=== PATIENT | male | born 1945 | race Caucasian/White ===

== ENCOUNTER → 2018-11-08 16:18 | Outpatient (CLI) | payer MEDICARE, OTHER, SELFPAY ==
--- NOTE | 2018-11-08 | DI.MRI.S_ITS ---
PROCEDURE: MR KNEE LT WO CON INDICATIONS: PAIN IN LEFT KNEE TECHNIQUE: Noncontrast sagittal PD fast spin echo and T2 fast spin echo with fat saturation, sagittal 3-D FLASH with fat saturation; coronal T1 spin echo and PD fast spin echo with fat saturation, and axial PD fast spin echo with fat saturation through the knee. COMPARISON: [facility] [place], CR, XR KNEE ARTHRITIC SERIES LT, 08/29/2018, 15:15. FINDINGS: Image quality: Excellent. Menisci: Medial meniscal tear involving the posterior horn and body, with marked truncation of the free margin. There is also irregularity of the periphery of the body. Lateral meniscus appears grossly intact. Cruciate ligaments: Thickening of the anterior cruciate ligament although intact fibers are seen. There is also T2 hyperintensity. The PCL appears grossly intact. Medial structures: MCL mildly thickened. There is adjacent soft tissue edema. The posterior oblique ligament, semimembranosus tendon insertions, oblique popliteal ligament, and meniscocapsular junction appear intact. Visualized portions of the pes anserinus tendons appear normal. No abnormal bursal fluid. Lateral structures: Mild thickening and intrasubstance signal change of the lateral collateral ligament although no rupture. The biceps tendon appears intact. The popliteus tendon appears normal; the popliteofibular ligament appears intact. The posterosuperior and anteroinferior popliteomeniscal fascicles appear intact. The arcuate and fabellofibular ligaments appear intact, on either side of the lateral inferior geniculate artery. Iliotibial band appears normal. Anterior structures: Quadriceps tendon intact. Proximal and distal mild patellar tendinopathy is seen. Prepatellar and superficial infrapatellar subcutaneous edema. Bones and cartilage: No focal marrow contusion or discrete low signal fracture line. Within the medial compartment, diffuse partial-thickness loss surface fraying of the femoral and tibial articular cartilage. Within the lateral compartment, intrasubstance signal change of the central tibial cartilage and diffuse partial-thickness loss of the femoral cartilage without focal defect. Within the patellofemoral compartment, low-grade surface fraying of the cartilage overlying the median patellar ridge and central femoral trochlea. Joint space: Large partially ruptured Ann's cyst is seen measuring approximately 7 cm in the cephalocaudad dimension. Large joint effusion is present. Low signal 7 mm presumed loose body in the posterior joint space adjacent PCL image 16 series 8. IMPRESSION: Thickening and intrasubstance signal changes suggesting low-grade sprain versus mucoid degeneration of the anterior cruciate ligament. Medial meniscal tear involving the posterior horn and body. Low-grade sprain of the medial collateral ligament although differential includes reactive changes to medial meniscal pathology. Large partially ruptured Ann's cyst. Large joint effusion. Loose body within the posterior joint space as above. Age-indeterminate proximal lateral collateral ligament sprain. Degenerative joint disease as above. Proximal and distal patellar tendinopathy. Dictated by: Bryson Abernathy M.D. on 11/09/2018 at 8:32 Approved by: Bryson Abernathy M.D. on 11/09/2018 at 8:57
== END ==
PROVIDERS: Visit Provider Orthopaedic Surgery
DX: M25.562 Pain in left knee (principal); S83.242A Other tear of medial meniscus, current injury, left knee, initial encounter; S83.412A Sprain of medial collateral ligament of left knee, initial encounter; S83.422A Sprain of lateral collateral ligament of left knee, initial encounter; M25.462 Effusion, left knee; M71.22 Synovial cyst of popliteal space [Baker], left knee; M17.12 Unilateral primary osteoarthritis, left knee
CPT/HCPCS: 73721

== ENCOUNTER → 2020-08-07 12:19 | Outpatient (CLI) | payer MEDICARE, OTHER, SELFPAY ==
--- NOTE | 2020-08-07 12:23 | DI.US.S_ITS ---
PROCEDURE: US ABD AORTA ANEURYSM SCREEN INDICATIONS: AAA screen TECHNIQUE: Real time scanning was performed of the aorta and iliac arteries, with image documentation. COMPARISON: None. FINDINGS: Aorta: Proximal aortic diameter measures 2.2 x 2.4 cm. Mid-aorta measures 1.9 x 1.8 cm. Distal aortic diameter is 2.9 x 2.5 cm. Iliac arteries: Right common iliac artery measures 0.9 cm. Left common iliac artery measures 0.9 cm. IMPRESSION: Mild proximal abdominal aortic ectasia. A follow-up ultrasound is suggested in 5 years. Dictated by: Deja Wells M.D. on 08/07/2020 at 13:28 Approved by: Deja Wells M.D. on 08/07/2020 at 13:30
== END ==
PROVIDERS: PCP Student in an Organized Health Care Education/Training Program; Referring Provider Student in an Organized Health Care Education/Training Program; Visit Provider Student in an Organized Health Care Education/Training Program
DX: Z13.6 Encounter for screening for cardiovascular disorders (principal); Z87.891 Personal history of nicotine dependence
CPT/HCPCS: 76706

== ENCOUNTER → 2021-09-15 11:34 | Outpatient (CLI) | payer MEDICARE, OTHER, SELFPAY ==
--- NOTE | 2021-09-15 11:37 | DI.RAD.S_ITS ---
PROCEDURE: XR HAND LT MIN 3V INDICATIONS: Left thumb injury TECHNIQUE: 3 views of the hand(s) acquired. COMPARISON: [facility], CR, XR FINGER(S) LEFT, 03/24/2021, 12:06. FINDINGS: Bones: There is 1st MCP dislocation. Significant superimposed degenerative changes present. No discrete fracture is identified. Soft tissues: No suspicious soft tissue calcifications. IMPRESSION: 1st MCP dislocation without visualized fracture. Dictated by: Eveline Strickland M.D. on 09/15/2021 at 18:21 Approved by: Eveline Strickland M.D. on 09/15/2021 at 18:21
== END ==
PROVIDERS: PCP Student in an Organized Health Care Education/Training Program; Referring Provider Student in an Organized Health Care Education/Training Program; Visit Provider Student in an Organized Health Care Education/Training Program
DX: S63.115A Dislocation of metacarpophalangeal joint of left thumb, initial encounter (principal); X58.XXXA Exposure to other specified factors, initial encounter
CPT/HCPCS: 73130

== ENCOUNTER → 2021-10-16 08:19 | Outpatient (CLI) | payer MEDICARE, OTHER, SELFPAY ==
--- NOTE | 2021-10-16 08:19 | DI.US.S_ITS ---
PROCEDURE: US RENAL COMPLETE INDICATIONS: BPH TECHNIQUE: Real-time scanning was performed of the kidneys and bladder, with image documentation. COMPARISON: [facility], US, US ABD AORTA ANEURYSM SCREEN, 08/07/2020, 12:45. FINDINGS: Kidneys: Kidneys are normal in size. Right kidney measures 10.3 cm long; left kidney measures 10.6 cm long. Right renal cortical thickness is 1.7 cm; left renal cortical thickness is 1.7 cm. Renal cortical echotexture is normal. No hydronephrosis or nephrolithiasis. No suspicious solid mass lesions. Bladder: Pre-void bladder volume is 182 mL. Post-void residual is 0 mL. Pre-void images demonstrate no intraluminal masses or stones. On pre-void images, both ureteral jets are noted with color Doppler interrogation. (Of note, ureteral jets may not be detectable in up to 25% of cases due to insufficient differences in specific gravity between ureteral and bladder urine). Miscellaneous: No free pelvic fluid. Prostate gland not well seen. IMPRESSION: No hydronephrosis. No significant postvoid residual. Dictated by: Raf Preciado M.D. on 10/16/2021 at 10:26 Approved by: Raf Preciado M.D. on 10/16/2021 at 10:27
== END ==
PROVIDERS: PCP Student in an Organized Health Care Education/Training Program; Referring Provider Student in an Organized Health Care Education/Training Program; Visit Provider Student in an Organized Health Care Education/Training Program
DX: N40.0 Benign prostatic hyperplasia without lower urinary tract symptoms (principal)
CPT/HCPCS: 76770

== ENCOUNTER → 2021-11-10 10:27 | Outpatient (CLI) | payer MEDICARE, OTHER, SELFPAY ==
[2021-11-11 08:54] LABS: Fecal Immunochemical Test Positive (Negative)
== END ==
PROVIDERS: PCP Student in an Organized Health Care Education/Training Program; Referring Provider Student in an Organized Health Care Education/Training Program; Visit Provider Student in an Organized Health Care Education/Training Program
DX: Z12.11 Encounter for screening for malignant neoplasm of colon (principal)
CPT/HCPCS: 82274

== ENCOUNTER → 2021-11-25 09:32 | Outpatient (CLI) | payer MEDICARE, OTHER, SELFPAY ==
[2021-11-25 11:42] LABS: COVID19 -Nasal RAPID Negative (Negative)
== END ==
PROVIDERS: PCP Student in an Organized Health Care Education/Training Program; Visit Provider Surgery
DX: Z20.822 Contact with and (suspected) exposure to COVID-19 (principal); Z01.812 Encounter for preprocedural laboratory examination
CPT/HCPCS: 87635; C9803

== ENCOUNTER 2021-11-26 12:56 | Day surgery (SDC) | payer MEDICARE, OTHER, SELFPAY ==
--- NOTE | 2021-11-26 | PATH_ITS ---
[facility] Accession Number: [id number] . 01 Material submitted: . PART A: duodenum bulb - DUODENAL BULB PART B: stomach - ANTRUM . 02 Diagnosis: A. Duodenum, Bulb, Biopsy: Duodenal mucosa with gastric heterotopia. Negative for intraepithelial lymphocytosis. Negative for dysplasia and malignancy. . B. Stomach, Antrum, Biopsy: Acute erosive gastritis with reactive gastropathy. Negative for Helicobacter by immunohistochemistry. Negative for intestinal metaplasia. Negative for dysplasia and malignancy. [facility] 12/02/2021 1436 Local . 02 Electronically signed: . Audelia Miranda MD, Pathologist NPI- [id number] . 01 Gross description: . Part A: DUODENAL BULB: Received in formalin is 1 fragment(s) of mc, soft tissue measuring 0.2 x 0.2 x 0.1 cm submitted entirely in 1 cassette(s) Part B: ANTRUM: Received in formalin are 3 fragment(s) of mc, soft tissue measuring 0.5 x 0.3 x 0.2 cm to 0.1 x 0.1 x 0.1 cm submitted entirely in 1 cassette(s) /CPE 11/27/2021 0628 Local . 02 Microscopic: . B. An immunohistochemical stain is performed to evaluate for Helicobacter organisms and is negative. The control stain shows appropriate reactivity. . * This test was developed and its performance characteristics determined by [facility]. It has not been cleared or approved by the U.S. Food and Drug Administration. The FDA has determined that such clearance or approval is not necessary. This test is used for clinical purposes. It should not be regarded as investigational or for research. . 02 Pathologist provided ICD-10: R19.5 . 02 CPT . 234139, 235698, [id number] Specimen Comment: A courtesy copy of this report has been sent to [phone] Performed at: 01 [facility] [address] [place] [address], [place], [place] [id number] MD Timothy Thapa MD Phone: [phone] Performed at: 02 [facility] [address] [address] [place], [place] [id number] MD Audelia Miranda MD Phone: [phone]
[2021-11-26 13:26] VITALS: BP 145/87; PULSE 79; RESP 16; TEMP 36.3; O2SAT 98; BMI 25.7
[2021-11-26] MEDS: LACTATED RINGERS 1,000 ML 42 ML IV (13:45)
--- NOTE | 2021-11-26 15:20 | PM.PREOP ---
Pre-operative Note COVID-19 COVID-19 status: Negative Result date/Date tested (Pos, Neg/Pending): 11/25/21 Interval Note History & Physical reviewed/Exam performed by Physician: Yes Changes to H&P: No ASA Class (for procedural sedation): II
[2021-11-26] MEDS: LIDOCAINE 4% SOLN 50 ML 20 ML TOP (15:45)
[2021-11-26] MEDS: MIDAZOLAM 5 MG/5 ML VIAL IV (15:47)
[2021-11-26] MEDS: fentaNYL 250 MCG/5 ML INJ IV (15:47)
--- NOTE | 2021-11-26 16:28 | PM.OP.EC ---
Operative Date/Time/Diagnoses Date of procedure: 11/26/21 Time of procedure: 16:29 Pre-op diagnosis: Positive fit test Post-op diagnosis: same Procedure & Clinicians Study performed: EGD and colonoscopy Same procedure as scheduled: Yes Surgeon: Parker Meza Procedure Notes Procedure in detail: Procedure in detail: A timeout was performed. Bite blocked was placed. Patient was positioned in a left lateral decubitus position. Sedation was administered with Versed and fentanyl. Once the patient was sedated the endoscope was inserted through the bite block and passed through the esophagus and stomach and into the duodenum. There was mild erythema and a healing ulcer in the duodenal bulb and questionable polypoid lesion verses hypertrophic mucosa which was removed with forceps. The scope was then withdrawn into the antrum and random biopsies were taken of the antral mucosa. There was mild diffuse gastritis in the body of the stomach. There were no obvious ulcerations in the gastric body but there was some old blood suggesting that there had been recent bleeding. Findings: Duodenitis, gastritis and questionable polypoid lesion in the duodenal bulb Next we repositioned the patient for a colonoscopy. A digital rectal exam was performed and no abnormality was palpated. The colonoscope was inserted and advanced to the cecum. The appendiceal orifice was identified and photographed. The scope was slowly withdrawn over greater than 6 minutes. No abnormalities were noted. The scope was retroflexed in the rectum and no abnormalities were noted. Findings: Normal colon Scope withdrawal time: 8 Sedation minutes: 38 Post-procedure Recommendations: Will call with biopsy results Disposition: PACU
[2021-11-26 16:31] VITALS: BP 110/60; PULSE 66; RESP 16; TEMP 36.9; O2SAT 97
[2021-11-26 16:36] VITALS: BP 105/66; PULSE 67; RESP 18; O2SAT 98
[2021-11-26 17:00] VITALS: BP 138/76; PULSE 80; RESP 18; O2SAT 97
[2021-11-26 17:24] VITALS: BP 138/88; PULSE 80; RESP 16; TEMP 36.8; O2SAT 97
== END 2021-11-26 17:15 | disposition home or self-care (01) ==
PROVIDERS: PCP Student in an Organized Health Care Education/Training Program; Referring Provider Surgery; Visit Provider Surgery
PROC: 0DJ08ZZ Inspection of Upper Intestinal Tract, Via Natural or Artificial Opening Endoscopic (ICD-10-PCS; CPT 43235; principal; 2021-11-26 14:30)
PROC: 0DJD8ZZ Inspection of Lower Intestinal Tract, Via Natural or Artificial Opening Endoscopic (ICD-10-PCS; CPT 45378; 2021-11-26 14:30)
DX: R19.5 Other fecal abnormalities (principal); K29.80 Duodenitis without bleeding; K29.00 Acute gastritis without bleeding; Q40.2 Other specified congenital malformations of stomach
CPT/HCPCS: 43239; 45378; 99152; 99153; J2250; J3010

== ENCOUNTER → 2022-10-20 09:42 | Outpatient (CLI) | payer MEDICARE, OTHER, SELFPAY ==
[2022-10-20 10:31] LABS: BUN Creatinine Ratio 29.2 (6-22); Blood Urea Nitrogen 35 mg/dL (9-20); Calcium 9.6 mg/dL (8.4-10.2); Carbon Dioxide 31 mmol/L (22-32); Chloride 99 mmol/L (98-107); Cholesterol 209 mg/dL (140-199); Estimated Glomerular Filt Rate > 60 mL/min (>60); Glucose 97 mg/dL (80-110); HDL Cholesterol 48 mg/dL (40-60); HEMOLYSIS < 15 (0-50); LDL Cholesterol Calculated 138 mg/dL (<100); Sodium 136 mmol/L (137-145); Triglycerides 113 mg/dL (35-150)
[2022-10-21 16:12] LABS: Hep C Virus Ab w/Reflex Quant NEGATIVE s/c (NEGATIVE)
== END ==
PROVIDERS: PCP Student in an Organized Health Care Education/Training Program; Referring Provider Student in an Organized Health Care Education/Training Program; Visit Provider Student in an Organized Health Care Education/Training Program
DX: I10 Essential (primary) hypertension (principal); Z11.59 Encounter for screening for other viral diseases; Z13.220 Encounter for screening for lipoid disorders
CPT/HCPCS: 36415; 80048; 80061; 86803

== ENCOUNTER → 2023-06-15 11:17 | Outpatient (CLI) | payer MEDICARE, OTHER, SELFPAY ==
--- NOTE | 2023-06-15 11:17 | DI.US.S_ITS ---
PROCEDURE: US ABDOMEN LIMITED INDICATIONS: KNOT ON ANTERIOR UPPER ABDOMEN TECHNIQUE: Real-time focused scanning was performed of the abdomen, with image documentation. COMPARISON: None. FINDINGS: There is an ovoid subcutaneous mass seen at the site of clinical concern measuring 4.4 x 1.7 x 4.5 cm. Internal vascularity can be seen. This does not change with Valsalva maneuver. No muscular/fascial defect can be seen. IMPRESSION: There is a 4.4 x 4.5 x 1.7 cm mass seen at the site of clinical concern. While this may represent a fat containing hernia, no fascial defect can be seen and there is no movement with Valsalva. Differential diagnosis includes a soft tissue mass and a complex lipoma. Please consider a follow-up CT with at least IV contrast for further evaluation. Dictated by: Benito Staples M.D. on 06/15/2023 at 17:42 Approved by: Benito Staples M.D. on 06/15/2023 at 17:43
== END ==
PROVIDERS: PCP Family Medicine; Referring Provider Surgery; Visit Provider Surgery
DX: R19.09 Other intra-abdominal and pelvic swelling, mass and lump (principal)
CPT/HCPCS: 76705

== ENCOUNTER → 2023-06-29 11:59 | Day surgery (SDC) | payer MEDICARE, OTHER, SELFPAY ==
[2023-06-23 13:44] VITALS: BMI 27.8
[2023-06-29] MEDS: LACTATED RINGERS 1,000 ML 42 ML IV (13:16)
[2023-06-29] MEDS: ACETAMINOPHEN 325 MG TABLET 975 MG PO (13:26)
[2023-06-29 13:30] VITALS: BP 116/67; PULSE 63; RESP 16; TEMP 36.3; O2SAT 95; BMI 27.8
--- NOTE | 2023-06-29 13:34 | PM.PREOP ---
Pre-operative Note COVID-19 COVID-19 status: Not tested Interval Note History & Physical reviewed/Exam performed by Physician: Yes Changes to H&P: No ASA Class (for procedural sedation): II
[2023-06-29] MEDS: CEFAZOLIN 2 GM/100 ML PREMIX 100 ML IV (13:40)
--- NOTE | 2023-06-29 14:04 | SUR.OPER ---
Supine on padded OR bed, head on pillow, arms secured on padded arm boards at <90 degrees abduction, legs uncrossed, safety belt at thigh, tape over blanket over lower legs.
[2023-06-29] MEDS: BUPIVACAINE 0.5% (PF) 30 ML, EPINEPHrine 0.15 MG INJ (14:30)
--- NOTE | 2023-06-29 14:38 | P.OP_ITS ---
Operative Date/Time/Diagnoses Date of procedure: 06/29/23 Time of procedure: 14:38 Pre-op diagnosis: Ventral hernia Post-op diagnosis: same Procedure & Clinicians Procedure: Open ventral hernia repair with mesh Same procedure as scheduled: Yes Surgeon: Parker Meza Anesthesia Type: General Operative Notes Findings: Incarcerated epigastric hernia containing viable omentum through a 1.5 cm fascial defect Procedure in detail: The patient is a 70-year-old man who presented with a soft tissue mass in the epigastrium. This was felt to be either lipoma or ventral hernia. An ultrasound was performed and no fascial defect was seen. He was consented for a ventral hernia repair with mesh versus lipoma excision. The patient was given Ancef. The patient was brought to the operating room and general anesthesia was induced. The abdomen was prepped and draped in the usual fashion and a time-out was performed. We made a 7 cm transverse incision over mass. We dissected the mass free from the surrounding subcutaneous adipose tissue. Became clear that this was an epigastric hernia containing omentum. Because the hernia contents could not be reduced through the small fascial defect we extended the fascial defect by about 6 mm with Metzenbaum scissors in a left lateral direction. Still, the incarcerated contents could not be reduced so the sac was opened cautery and some of the omentum was amputated using the Bovie cautery and discarded. This allowed the remaining omentum to be dropped back into the abdomen. The sac was then closed in the running manner with a 3-0 Vicryl stitch. The sac was allowed to drop back into the abdomen. We then injected some local anesthetic into the pre fascial plane. We then closed the defect with 4 interrupted 0 Ethibond sutures in a transverse fashion. We then t rimmed a small piece of polypropylene mesh to fit over fascia and secured it to the fascia with Tisseel. Once the Tisseel was dry we closed the wound in layers using multiple interrupted 3-0 Vicryl sutures in the subcutaneous adipose tissue and dermis followed by a running 4-0 Monocryl subcuticular closure. Steri- Strips and a dry gauze were applied followed by a binder. EBL: 10 mL Specimen: None Post-operative Condition: stable Disposition: PACU
[2023-06-29 14:45] VITALS: BP 114/60; PULSE 84; RESP 18; TEMP 36.3; O2SAT 97
[2023-06-29 14:48] VITALS: BP 115/53; PULSE 81; RESP 15; TEMP 36.3; O2SAT 97
[2023-06-29 14:53] VITALS: BP 107/56; PULSE 83; RESP 20; TEMP 36.3; O2SAT 97
[2023-06-29 15:00] VITALS: BP 104/65; PULSE 70; RESP 16; TEMP 36.3; O2SAT 99
== END | disposition home or self-care (01) ==
PROVIDERS: PCP Family Medicine; Referring Provider Surgery; Visit Provider Surgery
PROC: (CPT 49592; principal; 2023-06-29 13:30)
DX: K43.6 Other and unspecified ventral hernia with obstruction, without gangrene (principal)
CPT/HCPCS: 49592; J0171; J0690; J1100; J2405; J2704; J3010; J3490

== ENCOUNTER → 2024-02-09 10:43 | Outpatient (CLI) | payer MEDICARE, OTHER, SELFPAY ==
[2024-02-09 11:13] LABS: Add Manual Diff / Slide Review NO; Basophils Absolute Auto 0 /uL (0-100); Basophils Percent Auto 0.5 % (0-2); Eosinophils Absolute Auto 100 /uL (0-450); Eosinophils Percent Auto 1.8 % (2-4); Hematocrit 40.6 % (41-53); Hemoglobin 14.2 g/dL (13.5-17.5); Lymphocytes Absolute Auto 1900 /uL (1100-4500); Lymphocytes Percent Auto 29.2 % (25-40); Mean Corpuscular HGB Conc 34.9 % (30-36); Mean Corpuscular Hemoglobin 33.2 PG (26-34); Mean Corpuscular Volume 95.4 fL (80-100); Monocytes Absolute Auto 600 /uL (0-900); Neutrophils Absolute Auto 3900 /uL (1500-7000); Neutrophils Percent Auto 59.5 % (50-75); Platelet Count 242 X10^3/uL (150-400); Red Blood Cell Count 4.26 X10^6/uL (4.5-5.9); Red Cell Distribution Width 12.9 % (11.6-14.8); White Blood Cell Count 6.5 X10^3/uL (4.5-11.0)
[2024-02-09 11:39] LABS: BUN Creatinine Ratio 23.1 (6-22); Blood Urea Nitrogen 25 mg/dL (9-20); Calcium 9.2 mg/dL (8.4-10.2); Carbon Dioxide 29 mmol/L (22-32); Chloride 102 mmol/L (98-107); Cholesterol 192 mg/dL (140-199); Estimated Glomerular Filt Rate > 60 mL/min (>60); Glucose 101 mg/dL (80-110); HDL Cholesterol 56 mg/dL (40-60); HEMOLYSIS < 15 (0-50); LDL Cholesterol Calculated 110 mg/dL (<100); Potassium 4.3 mmol/L (3.4-5.1); Sodium 134 mmol/L (137-145); Triglycerides 130 mg/dL (35-150)
[2024-02-09 14:39] LABS: Creatinine Urine Random 100.12 mg/dL
[2024-02-09 14:43] LABS: Microalbumin Urine Random < 0.6 mg/dL (0-1.6)
== END ==
PROVIDERS: PCP Family Medicine; Referring Provider Family Medicine; Visit Provider Family Medicine
DX: E78.2 Mixed hyperlipidemia (principal); I10 Essential (primary) hypertension; Z13.9 Encounter for screening, unspecified
CPT/HCPCS: 36415; 80048; 80061; 82043; 82570; 85025

== ENCOUNTER → 2025-03-22 09:36 | Outpatient (CLI) | payer MEDICARE, OTHER, SELFPAY ==
[2025-03-22 10:04] LABS: Hematocrit 40.7 % (41-53); Hemoglobin 14.1 g/dL (13.5-17.5); Mean Corpuscular HGB Conc 34.7 % (30-36); Mean Corpuscular Hemoglobin 33.2 PG (26-34); Mean Corpuscular Volume 95.6 fL (80-100); Platelet Count 242 X10^3/uL (150-400)
[2025-03-22 10:59] LABS: Alanine Aminotransferase 28 IU/L (<50); Albumin 4.0 g/dL (3.5-5.0); Albumin Globulin Ratio 1.7 (1.0-2.8); Alkaline Phosphatase 81 U/L (38-126); Blood Urea Nitrogen 28 mg/dL (9-20); Calcium 9.3 mg/dL (8.4-10.2); Carbon Dioxide 25 mmol/L (22-32); Chloride 99 mmol/L (98-107); Cholesterol 182 mg/dL (140-199); Estimated Glomerular Filt Rate > 60 mL/min (>60); Globulin 2.4 g/dL (1.7-4.1); Glucose 97 mg/dL (70-99); HDL Cholesterol 58 mg/dL (40-60); HEMOLYSIS < 15 (0-50); Potassium 4.3 mmol/L (3.4-5.1); Sodium 132 mmol/L (137-145); Total Protein 6.4 g/dL (6.3-8.2); Triglycerides 102 mg/dL (35-150)
== END ==
PROVIDERS: PCP Family Medicine; Referring Provider Family Medicine; Visit Provider Family Medicine
DX: I10 Essential (primary) hypertension (principal); E78.2 Mixed hyperlipidemia
CPT/HCPCS: 36415; 80053; 80061; 82043; 82570; 85027